=== PATIENT | female | born 1955 | race Caucasian/White ===

== ENCOUNTER 2023-06-15 07:23 | Outpatient (RCR) | payer MEDICARE, BC, SELFPAY ==
[2023-06-15 09:22] LABS: Absolute Basophil Count 0.03 10^3/uL (0.0-0.2); Absolute Eosinophil Count 0.12 10^3/uL (0.0-0.7); Absolute Lymphocyte Count 1.14 10^3/uL (1.2-3.4); Absolute Monocyte Count 0.35 10^3/uL (0.1-0.8); Absolute Neutrophil Count 2.47 10^3/uL (1.2-6.7); Basophils % 0.7; Eosinophils % 2.9; HCT 39.7 % (36.0-46.0); HGB 12.2 g/dL (11.2-15.7); Lymphocytes % 27.7; MCH 26.9 pg (27.0-33.0); MCHC 30.7 % (32.0-36.0); MCV 87 fL (80-95); MPV 11.3 fL (8.0-11.0); Monocytes % 8.5; Neutrophils % 60.2; Platelet Count 193 10^3/uL (130-400); RBC 4.54 10^6/uL (3.93-5.22); RDW 13.9 % (11.7-14.6); RDW-SD 44.4 fL; WBC 4.11 10^3/uL (4.4-10.8)
[2023-06-15 09:38] LABS: ALT 20 U/L (14-59); AST 17 U/L (15-37); Albumin 3.6 g/dL (3.4-5.0); Alkaline Phosphatase 77 U/L (46-116); Anion Gap 10.7 mmol/L (3-11); BUN 13 mg/dL (7-18); Bilirubin, Total 0.5 mg/dL (0.2-1.0); CO2 26.3 mmol/L (21.0-32.0); CREATININE 0.7 mg/dL (0.55-1.02); Chloride 109 mmol/L (98-107); Estimated GFR 92.98 (mL/min/1.73m2); Glucose 85 mg/dL (74-106); Potassium 4.1 mmol/L (3.5-5.1); Sodium 146 mmol/L (136-145); Total Protein 6.9 g/dL (6.4-8.2)
[2023-06-15] MEDS: Normal Saline Flush 10 ML SYR IVP (10:03)
[2023-06-15 18:23] LABS: CEA <0.5 ng/mL (See Note)
== END 2023-07-01 23:59 | disposition home or self-care (01) ==
LOC: INF 07:23
PROVIDERS: PCP Family Medicine; Visit Provider Nurse Practitioner Family
DX: C18.7 Malignant neoplasm of sigmoid colon (principal); Z45.2 Encounter for adjustment and management of vascular access device
CPT/HCPCS: 36591; 80053; 82378; 85025

== ENCOUNTER 2023-07-27 00:44 | Outpatient (RCR) | payer MEDICARE, BC, SELFPAY ==
[2023-07-06 12:05] LABS: Abs Immature Grans 0.01 10^3/uL (0.0-0.06); Absolute Basophil Count 0.02 10^3/uL (0.0-0.2); Absolute Eosinophil Count 0.07 10^3/uL (0.0-0.7); Absolute Lymphocyte Count 1.18 10^3/uL (1.2-3.4); Absolute Neutrophil Count 2.42 10^3/uL (1.2-6.7); Basophils % 0.5; Eosinophils % 1.7; HCT 37.4 % (36.0-46.0); HGB 11.9 g/dL (11.2-15.7); Immature Grans % 0.2; Lymphocytes % 28.8; MCHC 31.8 % (32.0-36.0); MCV 88 fL (80-95); MPV 9.7 fL (8.0-11.0); Monocytes % 9.8; Platelet Count 180 10^3/uL (130-400); RBC 4.25 10^6/uL (3.93-5.22); RDW 15.5 % (11.7-14.6); RDW-SD 42.3 fL
[2023-07-06] MEDS: Normal Saline Flush 10 ML SYR IVP (12:10)
[2023-07-06 12:48] LABS: ALT 16 U/L (14-59); AST 12 U/L (15-37); Albumin 3.7 g/dL (3.4-5.0); Alkaline Phosphatase 74 U/L (46-116); Anion Gap 8.2 mmol/L (3-11); BUN 11 mg/dL (7-18); Bilirubin, Total 0.4 mg/dL (0.2-1.0); CO2 26.8 mmol/L (21.0-32.0); CREATININE 0.5 mg/dL (0.55-1.02); Calcium 8.9 mg/dL (8.5-10.1); Chloride 107 mmol/L (98-107); Estimated GFR 100.84 (mL/min/1.73m2); Glucose 93 mg/dL (74-106); Potassium 4.3 mmol/L (3.5-5.1); Sodium 142 mmol/L (136-145); Total Protein 6.9 g/dL (6.4-8.2)
[2023-07-06 18:00] LABS: CEA <0.5 ng/mL (See Note)
[2023-07-27] MEDS: Normal Saline Flush 10 ML SYR IVP (07:40)
[2023-07-27 08:26] LABS: Abs Immature Grans 0.01 10^3/uL (0.0-0.06); Absolute Basophil Count 0.04 10^3/uL (0.0-0.2); Absolute Eosinophil Count 0.18 10^3/uL (0.0-0.7); Absolute Lymphocyte Count 0.91 10^3/uL (1.2-3.4); Absolute Monocyte Count 0.36 10^3/uL (0.1-0.8); Absolute Neutrophil Count 2.06 10^3/uL (1.2-6.7); Basophils % 1.1; Eosinophils % 5.1; HCT 33.6 % (36.0-46.0); Immature Grans % 0.3; Lymphocytes % 25.6; MCH 28.9 pg (27.0-33.0); MCHC 32.7 % (32.0-36.0); MCV 88 fL (80-95); MPV 10.3 fL (8.0-11.0); Monocytes % 10.1; Neutrophils % 57.8; Platelet Count 164 10^3/uL (130-400); RDW 17.2 % (11.7-14.6); RDW-SD 52.7 fL; WBC 3.56 10^3/uL (4.4-10.8)
[2023-07-27 08:46] LABS: ALT 18 U/L (14-59); AST 14 U/L (15-37); Albumin 3.5 g/dL (3.4-5.0); Alkaline Phosphatase 68 U/L (46-116); BUN 15 mg/dL (7-18); Bilirubin, Total 0.4 mg/dL (0.2-1.0); CREATININE 0.5 mg/dL (0.55-1.02); Calcium 8.9 mg/dL (8.5-10.1); Chloride 109 mmol/L (98-107); Estimated GFR 100.84 (mL/min/1.73m2); Glucose 90 mg/dL (74-106); Potassium 4.1 mmol/L (3.5-5.1); Sodium 145 mmol/L (136-145); Total Protein 6.4 g/dL (6.4-8.2)
[2023-07-27 18:14] LABS: CEA <0.5 ng/mL (See Note)
== END 2023-07-31 23:59 | disposition home or self-care (01) ==
LOC: INF 00:44
PROVIDERS: PCP Family Medicine; Visit Provider Nurse Practitioner Family
DX: C18.7 Malignant neoplasm of sigmoid colon (principal); Z45.2 Encounter for adjustment and management of vascular access device
CPT/HCPCS: 36591; 80053; 82378; 85025

== ENCOUNTER 2023-08-17 01:35 | Outpatient (RCR) | payer MEDICARE, BC, SELFPAY ==
[2023-08-17] MEDS: Normal Saline Flush 10 ML SYR IVP (08:29)
[2023-08-17 08:39] LABS: Abs Immature Grans 0.01 10^3/uL (0.0-0.06); Absolute Basophil Count 0.02 10^3/uL (0.0-0.2); Absolute Lymphocyte Count 0.93 10^3/uL (1.2-3.4); Absolute Monocyte Count 0.46 10^3/uL (0.1-0.8); Absolute Neutrophil Count 1.86 10^3/uL (1.2-6.7); Basophils % 0.6 %; HCT 32.4 % (36.0-46.0); HGB 10.8 g/dL (11.2-15.7); Immature Grans % 0.3 %; Lymphocytes % 27.5 %; MCH 30.3 pg (27.0-33.0); MCHC 33.3 % (32.0-36.0); MCV 91 fL (80-95); MPV 10.2 fL (8.0-11.0); Monocytes % 13.6 %; Platelet Count 138 10^3/uL (130-400); RBC 3.57 10^6/uL (3.93-5.22); RDW 18.4 % (11.7-14.6); RDW-SD 59.5 fL; WBC 3.38 10^3/uL (4.4-10.8)
[2023-08-17 08:53] LABS: ALT 43 U/L (14-59); AST 26 U/L (15-37); Albumin 3.3 g/dL (3.4-5.0); Alkaline Phosphatase 63 U/L (46-116); Anion Gap 4.6 mmol/L (3-11); BUN 9 mg/dL (7-18); Bilirubin, Total 0.6 mg/dL (0.2-1.0); CO2 27.4 mmol/L (21.0-32.0); CREATININE 0.6 mg/dL (0.55-1.02); Calcium 8.8 mg/dL (8.5-10.1); Chloride 111 mmol/L (98-107); Glucose 86 mg/dL (74-106); Potassium 3.8 mmol/L (3.5-5.1); Sodium 143 mmol/L (136-145); Total Protein 6.2 g/dL (6.4-8.2)
[2023-08-17 19:02] LABS: CEA 0.6 ng/mL (See Note)
== END 2023-08-31 23:59 | disposition home or self-care (01) ==
LOC: INF 01:35
PROVIDERS: PCP Family Medicine; Visit Provider Nurse Practitioner Family
DX: C18.7 Malignant neoplasm of sigmoid colon (principal); Z45.2 Encounter for adjustment and management of vascular access device
CPT/HCPCS: 36591; 80053; 82378; 85025

== ENCOUNTER 2023-12-19 02:42 | Outpatient (RCR) | payer MEDICARE, BC, SELFPAY ==
[2023-12-19] MEDS: Normal Saline Flush 10 ML SYR IVP (08:43)
[2023-12-19 09:37] LABS: Abs Immature Grans 0.01 10^3/uL (0.0-0.06); Absolute Basophil Count 0.03 10^3/uL (0.0-0.2); Absolute Eosinophil Count 0.11 10^3/uL (0.0-0.7); Absolute Lymphocyte Count 1.14 10^3/uL (1.2-3.4); Absolute Monocyte Count 0.29 10^3/uL (0.1-0.8); Absolute Neutrophil Count 2.28 10^3/uL (1.2-6.7); Basophils % 0.8 %; Eosinophils % 2.8 %; HCT 39.5 % (36.0-46.0); HGB 12.7 g/dL (11.2-15.7); Immature Grans % 0.3 %; Lymphocytes % 29.5 %; MCH 28.9 pg (27.0-33.0); MCHC 32.2 % (32.0-36.0); MCV 90 fL (80-95); MPV 11.6 fL (8.0-11.0); Monocytes % 7.5 %; Neutrophils % 59.1 %; Platelet Count 144 10^3/uL (130-400); RDW 11.9 % (11.7-14.6); RDW-SD 39.2 fL; WBC 3.86 10^3/uL (4.4-10.8)
[2023-12-19 10:00] LABS: ALT 18 U/L (14-59); AST 16 U/L (15-37); Albumin 3.8 g/dL (3.4-5.0); Alkaline Phosphatase 81 U/L (46-116); Anion Gap 8.8 mmol/L (3-11); BUN 17 mg/dL (7-18); Bilirubin, Total 0.63 mg/dL (0.2-1.0); CO2 26.2 mmol/L (21.0-32.0); CREATININE 0.8 mg/dL (0.55-1.02); Calcium 9.4 mg/dL (8.5-10.1); Chloride 108 mmol/L (98-107); Estimated GFR 79.22 (mL/min/1.73m2); Glucose 118 mg/dL (74-106); Sodium 143 mmol/L (136-145); Total Protein 7.1 g/dL (6.4-8.2)
[2023-12-19 18:16] LABS: CEA 0.6 ng/mL (See Note)
== END 2023-12-31 23:59 | disposition home or self-care (01) ==
LOC: INF 02:42
PROVIDERS: PCP Family Medicine; Visit Provider Internal Medicine Hematology & Oncology
DX: C18.7 Malignant neoplasm of sigmoid colon (principal)
CPT/HCPCS: 36591; 80053; 82378; 85025

== ENCOUNTER 2024-03-11 01:17 | Outpatient (CLI) | payer MEDICARE, BC, SELFPAY ==
--- NOTE | 2024-03-11 | DI.CT_ITS ---
Exam(s) CT CHEST/ABD/PEL W EXAM: CT CHEST/ABD/PEL W CLINICAL HISTORY: COLON CANCER C18.7 S/P RESECTION AND CHEMO. TECHNIQUE: Imaging Protocol: Axial computed tomography images with coronal and sagittal reformatted images were created and reviewed CONTRAST MATERIAL: Intravenous: Omnipaque 350 Contrast volume:100 ml Oral: Yes. Oral contrast was also administered for bowel opacification. COMPARISON: OUTSIDE INSTITUTION CT ABD/PELVIS W CONTRAST from 08/24/2023 FINDINGS: CHEST: Distal tip of the right supra clavi in Port-A-Cath is in the right atrium. LUNGS: No infiltrates nor nodules in the right lung. There is a solitary finding in the left lung wh ich is a ground-glass nodule infiltrate measuring 6-7 mm in the superior segment of the left lower lo be (series 4/image 34). There are no pleural effusions. No significant findings in the trachea and mainstem bronchi. There is no bronchiectasis. MEDIASTINUM: There is no hilar nor mediastinal adenopathy. Visualized thyroid unremarkable.However, t he esophagus is significantly dilated throughout its length implying possible stricture at the [facility]. The esophagus is dilated to 4 cm diameter size. CARDIAC: Heart size is normal. There is no pericardial effusion.Caliber of the thoracic aorta is wit hin normal limits. OSSEOUS: No significant osseous lesions.No fractures. Schmorl's node invagination superior endplate of T11 noted. Scoliosis in the lumbar spine noted.. ABDOMEN: There is no ascites. LIVER: There are no focal hepatic lesions nor dilatation of intrahepatic ducts. GALLBLADDER/BILIARY: No obvious gallbladder pathology. CBD is not dilated. PANCREAS: No evidence of pancreatic mass nor dilatation of the pancreatic duct. SPLEEN: Spleen is not enlarged. There are no intrasplenic lesions. Splenic and portal veins are lamar nt. ADRENALS: There are no significant adrenal masses. KIDNEYS: No calculi nor hydronephrosis. No solid renal masses. No cysts evident. ABDOMINAL AORTA: Abdominal aorta is not enlarged. LYMPH NODES: There is no retroperitoneal nor paraaortic adenopathy. ABDOMINAL WALL: No evidence of significant anterior abdominal wall nor inguinal hernia. GI: The administered oral contrast has reached the level of the rectum. There is no evidence of chele l obstruction, free air, nor abscess. PELVIS: LYMPH NODES: There is no intrapelvic nor inguinal adenopathy. GI: No evidence of appendicitis.No evidence of sigmoid diverticulitis. URINARY BLADDER: Collapsed and difficult to evaluate. REPRODUCTIVE: Uterus size age-appropriate. Calcified fibroid is noted in the anterior right side of the fundus. OSSEOUS: Scoliosis noted in the lumbar spine which appears degenerative. Multilevel chronic disc spa ce narrowing in the lumbar spine. No significant osseous lesions. No fractures. IMPRESSION: 1. There is significant abnormal dilatation of the entire length of the esophagus, exhibiting diamete r up to 4 cm. This implies the presence of a possible stricture at the GE junction level. Recommend endoscopy to rule out malignancy. There is no obvious para esophageal adenopathy. 2. There is a small ground-glass nodular infiltrate in the left lower lobe measuring 6-7 mm. No othe r lung nodules. Recommend repeat chest CT scan in 3 months for this finding, given the history here. 3. No evidence of metastatic disease in the abdomen and pelvis. No evidence of bowel obstruction nor free air. No ascites. 4. Other findings as above. RADIATION DOSE DELIVERED: 356.52mGy.cm Total DLP DATA REPOSITORY: All CT scans at this facility are submitted to the National Radiology Data Registry (NRDR) Dose Index Registry (DIR) with the [employer] (ACR). RADIATION OPTIMIZATION: All CT scans at this facility use at least one of these dose optimization te chniques: automated exposure control; mA and/or kV adjustment per patient size (includes targeted exa ms where dose is matched to clinical indication); or iterative reconstruction.
[2024-03-11] MEDS: Barium Sulfate 2% W/V-Creamy Vanilla Smoothie 450 ML BTL PO ×2 (07:29→07:30)
[2024-03-11] MEDS: Omnipaque 350 MG/ML 100 ML BTL IJ (11:02)
[2024-03-11] MEDS: Normal Saline - Diluent 50 ML VIAL IJ (11:02)
== END 2024-03-11 01:37 ==
PROVIDERS: PCP Family Medicine; Visit Provider Nurse Practitioner Family
DX: C18.7 Malignant neoplasm of sigmoid colon (principal); R91.8 Other nonspecific abnormal finding of lung field
CPT/HCPCS: 36591; 74177; 80053; 71260; 82378; 85025; J3490

== ENCOUNTER 2024-03-11 01:49 | Outpatient (RCR) | payer MEDICARE, BC, SELFPAY ==
[2024-03-11] MEDS: Normal Saline Flush 10 ML SYR IVP (07:19)
[2024-03-11 07:23] LABS: Abs Immature Grans 0.01 10^3/uL (0.0-0.06); Absolute Basophil Count 0.04 10^3/uL (0.0-0.2); Absolute Lymphocyte Count 0.92 10^3/uL (1.2-3.4); Absolute Monocyte Count 0.43 10^3/uL (0.1-0.8); Absolute Neutrophil Count 3.97 10^3/uL (1.2-6.7); Basophils % 0.7 %; Eosinophils % 1.8 %; HGB 11.9 g/dL (11.2-15.7); Immature Grans % 0.2 %; Lymphocytes % 16.8 %; MCH 28.7 pg (27.0-33.0); MCHC 32.2 % (32.0-36.0); MCV 89 fL (80-95); MPV 10.7 fL (8.0-11.0); Monocytes % 7.9 %; Neutrophils % 72.6 %; Platelet Count 160 10^3/uL (130-400); RBC 4.14 10^6/uL (3.93-5.22); RDW 12.1 % (11.7-14.6); RDW-SD 39.2 fL; WBC 5.47 10^3/uL (4.4-10.8)
[2024-03-11 07:52] LABS: ALT 16 U/L (14-59); AST 15 U/L (15-37); Albumin 3.8 g/dL (3.4-5.0); Alkaline Phosphatase 84 U/L (46-116); Anion Gap 9.1 mmol/L (3-11); BUN 17 mg/dL (7-18); Bilirubin, Total 0.63 mg/dL (0.2-1.0); CO2 26.9 mmol/L (21.0-32.0); CREATININE 0.7 mg/dL (0.55-1.02); Calcium 9.1 mg/dL (8.5-10.1); Chloride 110 mmol/L (98-107); Estimated GFR 92.98 (mL/min/1.73m2); Glucose 94 mg/dL (74-106); Potassium 4.2 mmol/L (3.5-5.1); Sodium 146 mmol/L (136-145); Total Protein 6.9 g/dL (6.4-8.2)
[2024-03-11 18:14] LABS: CEA 0.6 ng/mL (See Note)
== END 2024-04-01 23:59 | disposition home or self-care (01) ==
LOC: INF 01:49
PROVIDERS: PCP Family Medicine; Visit Provider Internal Medicine Hematology & Oncology
DX: C18.7 Malignant neoplasm of sigmoid colon (principal); Z45.2 Encounter for adjustment and management of vascular access device
CPT/HCPCS: 36591; 80053; 82378; 85025

== ENCOUNTER 2024-05-07 00:06 | Outpatient (CLI) | payer MEDICARE, BC, SELFPAY ==
[2024-05-07] MEDS: Omnipaque 350 MG/ML 500 ML BTL-Imaging package IJ (09:32)
[2024-05-07] MEDS: Normal Saline - Diluent 50 ML VIAL IJ (09:32)
--- NOTE | 2024-05-07 09:45 | DI.CT_ITS ---
Exam(s) CT CHEST W EXAM: CT CHEST W CLINICAL HISTORY: Malignant neoplasm of sigmoid colon, C18.7; lung nodule, R91.1;ground-glass TECHNIQUE: Imaging Protocol: Axial computed tomography images with coronal and sagittal reformatted images were created and reviewed. Computer aided detection (CAD) was utilized. CONTRAST MATERIAL: Intravenous: Omnipaque 350 Contrast volume:70 ml. COMPARISON: CT CT CHEST/ABD/PEL W from 03/11/2024 FINDINGS: Pulmonary parenchyma: No consolidation. No dominant measurable mass. Tracheobronchial tree: No bronchiectasis or mucous plugging. Mediastinum and Rosa: No dominant adenopathy. Dilated esophagus which is fluid filled from the level of the aortic arch down. No visible hiatal hernia. Pleura: No effusion. No pneumothorax. Heart: The heart is not dilated. No coronary artery calcifications are seen. Aorta: Thoracic aorta non-dilated. Mild atherosclerotic changes. Pulmonary arteries: No gross evidence of emboli. Upper abdomen: No acute findings. Bones: Degenerative changes in the spine. No lytic or blastic lesions. Soft tissues: Port over right upper chest. IMPRESSION: Resolution of previously noted ground-glass opacity in the superior left lower lobe. No suspicious pu lmonary nodules. No evidence of adenopathy. Continued dilatation of the distal esophagus which is fluid filled. No gross evidence of a mass. This may represent distal esophageal stricture. RADIATION DOSE DELIVERED: 118.5mGy.cm Total DLP DATA REPOSITORY: All CT scans at this facility are submitted to the National Radiology Data Registry (NRDR) Dose Index Registry (DIR) with the [employer] (ACR). RADIATION OPTIMIZATION: All CT scans at this facility use at least one of these dose optimization te chniques: automated exposure control; mA and/or kV adjustment per patient size (includes targeted exa ms where dose is matched to clinical indication); or iterative reconstruction.
== END 2024-05-07 00:26 ==
LOC: DI 00:06
PROVIDERS: PCP Family Medicine; Visit Provider Internal Medicine Hematology & Oncology
DX: C18.7 Malignant neoplasm of sigmoid colon (principal); R91.8 Other nonspecific abnormal finding of lung field
CPT/HCPCS: 36415; 36591; 80053; 71260; 82378; 82728; 83540; 83550; 85025

== ENCOUNTER 2024-05-07 00:47 | Outpatient (RCR) | payer MEDICARE, BC, SELFPAY ==
[2024-05-07] MEDS: Normal Saline Flush 10 ML SYR IVP (08:40)
[2024-05-07 08:53] LABS: Abs Immature Grans 0.02 10^3/uL (0.0-0.06); Absolute Basophil Count 0.02 10^3/uL (0.0-0.2); Absolute Eosinophil Count 0.12 10^3/uL (0.0-0.7); Absolute Monocyte Count 0.34 10^3/uL (0.1-0.8); Absolute Neutrophil Count 4.03 10^3/uL (1.2-6.7); Basophils % 0.3 %; Eosinophils % 2.1 %; HCT 41.4 % (36.0-46.0); HGB 13.2 g/dL (11.2-15.7); Immature Grans % 0.3 %; Lymphocytes % 20.9 %; MCH 28.9 pg (27.0-33.0); MCHC 31.9 % (32.0-36.0); MCV 91 fL (80-95); MPV 10.5 fL (8.0-11.0); Monocytes % 5.9 %; Neutrophils % 70.5 %; Platelet Count 162 10^3/uL (130-400); RBC 4.56 10^6/uL (3.93-5.22); RDW 11.7 % (11.7-14.6); WBC 5.73 10^3/uL (4.4-10.8)
[2024-05-07 09:21] LABS: Iron 78 ug/dL (50-170); Total Iron Binding Capacity 303 ug/dL (250-450); Transferrin Sat 26 % (15-50)
[2024-05-07 09:22] LABS: ALT 14 U/L (14-59); AST 13 U/L (15-37); Albumin 3.7 g/dL (3.4-5.0); Alkaline Phosphatase 90 U/L (46-116); Anion Gap 8.7 mmol/L (3-11); BUN 13 mg/dL (7-18); Bilirubin, Total 0.68 mg/dL (0.2-1.0); CO2 25.3 mmol/L (21.0-32.0); CREATININE 0.6 mg/dL (0.55-1.02); Calcium 9.2 mg/dL (8.5-10.1); Chloride 109 mmol/L (98-107); Ferritin 48 ng/mL (8-252); Glucose 95 mg/dL (74-106); Potassium 4.3 mmol/L (3.5-5.1); Sodium 143 mmol/L (136-145); Total Protein 7.1 g/dL (6.4-8.2)
[2024-05-07 21:15] LABS: CEA <0.5 ng/mL (See Note)
== END 2024-05-30 23:59 | disposition home or self-care (01) ==
LOC: INF 00:47
PROVIDERS: PCP Family Medicine; Visit Provider Internal Medicine Hematology & Oncology
DX: C18.7 Malignant neoplasm of sigmoid colon (principal); Z86.39 Personal history of other endocrine, nutritional and metabolic disease
CPT/HCPCS: 36415; 36591; 80053; 82378; 82728; 83540; 83550; 85025

== ENCOUNTER 2024-09-02 01:13 | Outpatient (CLI) | payer MEDICARE, BC, SELFPAY ==
[2024-09-02] MEDS: Barium Sulfate 2% W/V-Creamy Vanilla Smoothie 450 ML BTL PO ×2 (07:20→07:21)
[2024-09-02] MEDS: Omnipaque 350 MG/ML 100 ML BTL IJ (10:43)
[2024-09-02] MEDS: Normal Saline - Diluent 50 ML VIAL IJ (10:44)
--- NOTE | 2024-09-02 11:00 | DI.CT_ITS ---
Exam(s) CT CHEST/ABD/PEL W EXAM: CT CHEST/ABD/PEL W CLINICAL HISTORY: SIGMOID COLON CA, C18.7, STAGE II COLON CA. TECHNIQUE: Imaging Protocol: Axial computed tomography images with coronal and sagittal reformatted images were created and reviewed CONTRAST MATERIAL: Intravenous: Omnipaque 350 Contrast volume:100 ml Oral: Yes. Oral contrast was also administered for bowel opacification. COMPARISON: CT CT CHEST W from 05/07/2024 FINDINGS: CHEST: LUNGS: There are no lung infiltrates nor pleural effusions. There are no ominous pulmonary nodules. There are no significant focal findings in trachea and mainstem bronchi. No bronchiectasis.. MEDIASTINUM: There is no hilar nor mediastinal adenopathy. Visualized thyroid unremarkable.However, t here is again noted severe dilatation of the entire esophagus without evidence of a truly discernible mass at the GE junction nor hiatal hernia. Suspect achalasia or focal stricture. CARDIAC: Heart size is normal. There is no pericardial effusion.Caliber of the thoracic aorta is wit hin normal limits. OSSEOUS: Superior endplate Schmorl's node evident at T11 level. No true compression fracture at this level nor elsewhere in the vertebral bodies.. OTHER: The distal tip of the Port-A-Cath is in the upper right atrium. ABDOMEN: There is no ascites. LIVER: There are no focal hepatic lesions nor dilatation of intrahepatic ducts. GALLBLADDER/BILIARY: No obvious gallbladder pathology. CBD is not dilated. PANCREAS: No evidence of pancreatic mass nor dilatation of the pancreatic duct. SPLEEN: Spleen is not enlarged. There are no intrasplenic lesions. Splenic and portal veins are lamar nt. ADRENALS: There are no significant adrenal masses. KIDNEYS: No calculi nor hydronephrosis. No solid renal masses. No cysts evident. ABDOMINAL AORTA: Abdominal aorta is not enlarged. LYMPH NODES: There is no retroperitoneal nor paraaortic adenopathy. ABDOMINAL WALL: No evidence of significant anterior abdominal wall nor inguinal hernia. GI: The oral contrast has reached the distal transverse colon at the time of image acquisition. Ther e appears to be an end-to-end anastomosis at this level. No significant bowel obstruction. No free air. No abscess. PELVIS: LYMPH NODES: There is no intrapelvic nor inguinal adenopathy. GI: No evidence of appendicitis.No evidence of sigmoid diverticulitis. URINARY BLADDER: No calculi nor masses evident REPRODUCTIVE: Uterus and adnexal regions appear unremarkable. There is no free fluid in the pelvis. OSSEOUS: No significant osseous lesions. No fractures. Chronic degenerative disc disease throughout the lumbar spine IMPRESSION: 1. There is an to end anastomosis in the distal transverse colon. There is a mild transition in the diameter of the colon at this level but no evidence of high-grade obstruction. There is no regional lymphadenopathy nor mesenteric masses at this level nor elsewhere in the abdomen and there is no asci diaz. No liver masses. 2. No evidence of metastatic lung nodules nor intrathoracic adenopathy nor pleural effusions. 3. Again noted is significant abnormal widening of the entire esophagus down to just above the GE rosendo ction, exhibiting diameter of 4 cm. There does not appear to be a large mass nor hiatal hernia dista lly. Suspect either focal stricture or possible achalasia. Endoscopy recommended. This patient is at significant risk for aspiration. 4. Other findings as above. RADIATION DOSE DELIVERED: 370.26 mGy.cm Total DLP DATA REPOSITORY: All CT scans at this facility are submitted to the National Radiology Data Registry (NRDR) Dose Index Registry (DIR) with the [employer] (ACR). RADIATION OPTIMIZATION: All CT scans at this facility use at least one of these dose optimization te chniques: automated exposure control; mA and/or kV adjustment per patient size (includes targeted exa ms where dose is matched to clinical indication); or iterative reconstruction.
== END 2024-09-02 01:33 ==
LOC: DI 01:13
PROVIDERS: PCP Family Medicine; Visit Provider Nurse Practitioner Family
DX: C18.7 Malignant neoplasm of sigmoid colon (principal)
CPT/HCPCS: 36591; 74177; 80053; 71260; 82378; 85025; J3490

== ENCOUNTER 2024-09-02 01:38 | Outpatient (RCR) | payer MEDICARE, BC, SELFPAY ==
[2024-09-02 06:44] LABS: Abs Immature Grans 0.01 10^3/uL (0.0-0.06); Absolute Basophil Count 0.04 10^3/uL (0.0-0.2); Absolute Eosinophil Count 0.11 10^3/uL (0.0-0.7); Absolute Lymphocyte Count 1.42 10^3/uL (1.2-3.4); Absolute Monocyte Count 0.33 10^3/uL (0.1-0.8); Absolute Neutrophil Count 2.14 10^3/uL (1.2-6.7); Eosinophils % 2.7 %; HCT 37.9 % (36.0-46.0); HGB 12.4 g/dL (11.2-15.7); Immature Grans % 0.2 %; Lymphocytes % 35.1 %; MCH 28.5 pg (27.0-33.0); MCHC 32.7 % (32.0-36.0); MCV 87 fL (80-95); MPV 10.4 fL (8.0-11.0); Monocytes % 8.1 %; Neutrophils % 52.9 %; Platelet Count 158 10^3/uL (130-400); RBC 4.35 10^6/uL (3.93-5.22); RDW-SD 38.5 fL; WBC 4.05 10^3/uL (4.4-10.8)
[2024-09-02] MEDS: Normal Saline Flush 10 ML SYR IVP (06:44)
[2024-09-02 07:00] LABS: ALT 13 U/L (14-59); AST 15 U/L (15-37); Albumin 3.8 g/dL (3.4-5.0); Alkaline Phosphatase 91 U/L (46-116); Anion Gap 8.5 mmol/L (3-11); BUN 15 mg/dL (7-18); Bilirubin, Total 0.7 mg/dL (0.2-1.0); CO2 28.5 mmol/L (21.0-32.0); CREATININE 0.7 mg/dL (0.55-1.02); Calcium 9.3 mg/dL (8.5-10.1); Chloride 107 mmol/L (98-107); Estimated GFR 92.41 (mL/min/1.73m2); Glucose 92 mg/dL (74-106); Potassium 4.2 mmol/L (3.5-5.1); Sodium 144 mmol/L (136-145); Total Protein 6.8 g/dL (6.4-8.2)
[2024-09-02 18:59] LABS: CEA <0.5 ng/mL (See Note)
== END 2024-09-29 23:59 | disposition home or self-care (01) ==
LOC: INF 01:38
PROVIDERS: Nurse Practitioner Family; PCP Family Medicine; Visit Provider Internal Medicine Hematology & Oncology
DX: C18.7 Malignant neoplasm of sigmoid colon (principal); Z45.2 Encounter for adjustment and management of vascular access device
CPT/HCPCS: 36591; 80053; 82378; 85025

== ENCOUNTER 2024-11-28 00:21 | Outpatient (CLI) | payer MEDICARE, BC, SELFPAY ==
--- NOTE | 2024-11-28 | DI.CT_ITS ---
Exam(s) CT CHEST/ABD/PEL W EXAM: CT CHEST/ABD/PEL W CLINICAL HISTORY: SIGMOID COLON CANCER C18.7 RESECTED SURVEILLANCE KNOWN ESOPHAGEAL WIDENING TECHNIQUE: Imaging Protocol: Axial computed tomography images with coronal and sagittal reformatted images were created and reviewed. Lung Computer Aided Detection (CAD) was utilized. CONTRAST MATERIAL: Intravenous: Omnipaque 350 contrast volume:100 mL Oral: Yes COMPARISON: CT CT CHEST W from 05/07/[address] CHEST/ABD/PEL W from 09/02/2024 FINDINGS: CHEST: Tracheobronchial tree: Patent where visualized. No evidence of bronchiectasis. Pulmonary parenchyma: No consolidation or dominant measurable mass. No architectural distortion. Visualized thyroid gland: Unremarkable. Mediastinum and Rosa: No dominant adenopathy or fluid collection. There is again seen a dilated esophagus through its entire length. There is a fluid level in the esophagus. This is unchanged compared to the prior examination. Pleura: No effusion or pneumothorax. Heart: Cardiomegaly. No coronary artery calcifications are seen. No pericardial effusion. Pulmonary arteries: No pulmonary emboli are identified. Aorta: Thoracic aorta non-dilated. There is no evidence of dissection. There is atherosclerotic calcification present. Lymph nodes: Within normal limits. Soft tissues: Unremarkable. Bones:Within normal limits for the patient's age. There is a question of a lytic lesion involving the posterior elements of C7 on the uppermost images on this examination. This areas ending is incompletely imaged. ABDOMEN: Liver: Normal density. No measurable mass. Portal, Superior Mesenteric, and Splenic Veins: Unremarkable. Gallbladder and Biliary Tract: No radiodense calculus or dilation. Pancreas: Normal density, no abnormal calcifications or inflammatory process. Spleen: Normal. Adrenals: No masses seen. Kidneys: Normal size, contour and axis. No radiodense stones or obstructive uropathy. No masses seen. Abdominal Aorta: Abdominal portion non-dilated. Atherosclerotic calcification is present. Bowel: There is diverticulosis of the colon without evidence of acute diverticulitis. There is an anastomosis in the left colon. There is no evidence of bowel obstruction. There is no bowel wall thickening present. Appendix is unremarkable. Peritoneal Cavity: No ascites, collection or mesenteric inflammatory response. No free air. Lymph Nodes: Within normal limits. Bones: Within normal limits for the patient's age. There is a left convex lumbar scoliosis. Soft Tissues: Unremarkable. PELVIS: Bladder: Symmetric distention, no gross wall thickening. Reproductive Organs: There is a calcified uterine fibroid. Lymph Nodes: Within normal limits. Bones: Within normal limits. IMPRESSION: 1. No evidence of abdominal or pelvic metastatic disease. 2. Stable dilated appearance of the esophagus. 3. Question of a lytic lesion involving the right posterior elements of C7. It is incompletely imaged on this examination. A CT scan of the cervical spine is recommended for further evaluation. Unexpected findings RADIATION DOSE DELIVERED: 518.56mGy.cm Total DLP DATA REPOSITORY: All CT scans at this facility are submitted to the National Radiology Data Registry (NRDR) Dose Index Registry (DIR) with the [employer] (ACR). RADIATION OPTIMIZATION: All CT scans at this facility use at least one of these dose optimization techniques: automated exposure control; mA and/or kV adjustment per patient size (includes targeted exams where dose is matched to clinical indication); or iterative reconstruction.
[2024-11-28] MEDS: Barium Sulfate 2% W/V-Creamy Vanilla Smoothie 450 ML BTL PO (07:05)
[2024-11-28] MEDS: Barium Sulfate 2% W/V-Berry Smoothie 450 ML BTL PO (07:06)
[2024-11-28 07:31] LABS: Abs Immature Grans 0.00 10^3/uL (0.0-0.06); HCT 35.3 % (36.0-46.0); HGB 11.4 g/dL (11.2-15.7); Immature Grans % 0.0 %; MCH 28.3 pg (27.0-33.0); MCHC 32.3 % (32.0-36.0); MCV 88 fL (80-95); MPV 10.9 fL (8.0-11.0); Platelet Count 156 10^3/uL (130-400); RBC 4.03 10^6/uL (3.93-5.22); RDW 12.0 % (11.7-14.6); RDW-SD 38.7 fL; WBC 4.19 10^3/uL (4.4-10.8)
[2024-11-28 07:51] LABS: Iron 58 ug/dL (50-170); Total Iron Binding Capacity 254 ug/dL (250-450); Transferrin Sat 23 % (15-50)
[2024-11-28 08:03] LABS: ALT 11 U/L (14-59); AST 12 U/L (15-37); Albumin 3.6 g/dL (3.4-5.0); Alkaline Phosphatase 69 U/L (46-116); Anion Gap 7.5 mmol/L (3-11); BUN 10 mg/dL (7-18); Bilirubin, Total 0.6 mg/dL (0.2-1.0); CO2 30.5 mmol/L (21.0-32.0); Calcium 9.1 mg/dL (8.5-10.1); Chloride 107 mmol/L (98-107); Estimated GFR 95.90 (mL/min/1.73m2); Ferritin 72 ng/mL (8-252); Glucose 90 mg/dL (74-106); Potassium 3.9 mmol/L (3.5-5.1); Sodium 145 mmol/L (136-145); Total Protein 6.3 g/dL (6.4-8.2)
[2024-11-28] MEDS: Omnipaque 350 MG/ML 500 ML BTL-Imaging package IJ (10:02)
[2024-11-28] MEDS: Normal Saline - Diluent 50 ML VIAL IJ (10:17)
[2024-11-28] MEDS: Normal Saline Flush 10 ML SYR IVP (10:18)
[2024-11-28 18:54] LABS: CEA <0.5 ng/mL (See Note)
== END 2024-11-28 00:41 ==
LOC: DI 00:21
PROVIDERS: PCP Family Medicine; Visit Provider Nurse Practitioner Family
DX: C18.7 Malignant neoplasm of sigmoid colon (principal); R93.89 Abnormal findings on diagnostic imaging of other specified body structures
CPT/HCPCS: 74177; 80053; 71260; 82378; 82728; 83540; 83550; 85025